=== PATIENT | female | born 1950 | race Caucasian/White ===

== ENCOUNTER 2016-06-25 09:54 | Outpatient (CLI) | payer OTHER ==
--- NOTE | 2016-06-25 10:42 | DIAGNOSTIC IMAGING REPORT ---
PROCEDURE: DEXA BONE DENSITY STUDY CLINICAL INDICATION: SCREENING COMPARISON: None. FINDINGS: LUMBAR SPINE: Bone mineral density 1.037, T-score -0.1, normal. LEFT HIP: Bone mineral density 1.041, T-score 0.8, normal. LEFT FEMORAL NECK: Bone mineral density 0.774, T-score -0.7, normal. (T score greater or equal to -1.0 to: NORMAL) (T score from -1.1 to -2.4: OSTEOPENIA) (T score ess than or equal to -2.5: OSTEOPOROSIS) IMPRESSION: 1. Normal lumbar spine and left hip bone mineral density.
--- NOTE | 2016-06-28 10:49 | DIAGNOSTIC IMAGING REPORT ---
PROCEDURE: MG BILATERAL SCREENING W/CAD INDICATION: SCREENING TECHNIQUE: Bilateral CC and MLO digital views. COMPARISON: Prior study not available at this time. FINDINGS: Computer-aided detection applied. Moderately dense. Scattered dystrophic calcifications. No change. IMPRESSION: 1. Negative mammogram RESULT CODE: 0- Prior images needed. A. A negative report should not delay biopsy if a dominant or clinically suspicious mass is present. 10-15% of cancers are not identified by x-ray. B. A negative report may reinforce clinical impression. C. Adenosis and dense breasts may obscure an underlying neoplasm. D. False positive reports average 6-10%. E.. A yearly screening mammogram is recommended. A reminder letter will be scheduled.
== END 2016-06-25 23:00 ==
LOC: MAM SRH 09:54
DX: Z12.31 Encounter for screening mammogram for malignant neoplasm of breast (principal); Z91.89 Other specified personal risk factors, not elsewhere classified; M81.0 Age-related osteoporosis without current pathological fracture